=== PATIENT | female | born 2000 | race Caucasian/White ===

== ENCOUNTER 2019-08-03 13:39 | Emergency (ER) | payer OTHER ==
--- NOTE | 2019-08-03 13:47 | ERPHSYRPT ---
- History of Present Illness Time Seen by Provider: 08/03/19 13:47 Source: patient Exam Limitations: no limitations Physician History: 19 y/o sexually active white female presents with one day h/o vaginal pressure and mild suprapubic cramping. no vaginal discharge or bleeding. has a remote h/ o trichomoniasis but received full tx. no known partners with stds. pt denies flank pain, hematuria and dysuria. Timing/Duration: day(s) (1) Activites at Onset: none Quality: cramping (mild suprapubic) Onset Location: suprapubic Pain Radiation: none Severity of Pain-Max: mild Severity of Pain-Current: mild Prior abdominal problems: none Sexual intercourse history: non-contributory Modifying Factors: Improves With: nothing Associated Symptoms: denies symptoms Allergies/Adverse Reactions: No Known Drug Allergies Allergy (Verified 08/03/19 13:48) - Review of Systems Constitutional: No Symptoms Eyes: No Symptoms Ears, Nose, & Throat: No Symptoms Respiratory: No Symptoms Cardiac: No Symptoms Abdominal/Gastrointestinal: No Symptoms Genitourinary Symptoms: No Symptoms Musculoskeletal: No Symptoms Skin: No Symptoms Neurological: No Symptoms Psychological: No Symptoms Endocrine: No Symptoms Hematologic/Lymphatic: No Symptoms Immunological/Allergic: No Symptoms All Other Systems: Reviewed and Negative - Past Medical History Neurological History: No Pertinent History ENT History: No Pertinent History Cardiac History: No Pertinent History Respiratory History: No Pertinent History Endocrine Medical History: No Pertinent History Musculoskeletal History: No Pertinent History GI Medical History: No Pertinent History History: No Pertinent History Psycho-Social History: No Pertinent History Female Reproductive Disorders: No Pertinent History - Past Surgical History Neuro Surgical History: No Pertinent History Cardiac: No Pertinent History Respiratory: No Pertinent History Gastrointestinal: No Pertinent History Genitourinary: No Pertinent History Musculoskeletal: No Pertinent History Female Surgical History: No Pertinent History - Nursing Vital Signs Nursing Vital Signs: Initial Vital Signs Temperature 98.7 F 08/03/19 13:49 Pulse Rate 85 08/03/19 13:49 Blood Pressure 141/79 08/03/19 13:49 O2 Sat by Pulse Oximetry 99 08/03/19 13:49 Pain Scale Pain Intensity [Medial Soft 8 Tissue] Pain Intensity 8 - Physical Exam General Appearance: no apparent distress, alert Eye Exam: PERRL/EOMI, eyes nml inspection Ears, Nose, Throat Exam: normal ENT inspection, moist mucous membranes Neck Exam: normal inspection, non-tender, supple, full range of motion Respiratory Exam: normal breath sounds, lungs clear, airway intact, No chest tenderness, No respiratory distress Cardiovascular Exam: regular rate/rhythm, normal heart sounds, normal peripheral pulses Gastrointestinal/Abdomen Exam: soft, normal bowel sounds, No tenderness Pelvic Exam: not done Rectal Exam: not done Back Exam: normal inspection, normal range of motion, No CVA tenderness, No vertebral tenderness Extremity Exam: normal inspection, normal range of motion, pelvis stable Neurologic Exam: alert, oriented x 3, cooperative, No medical specialist II-XII nml as tested Skin Exam: normal color, warm, dry Lymphatic Exam: No adenopathy SpO2 Interpretation: normal O2 Delivery: Room Air - Course Nursing assessment & vital signs reviewed: Yes Ordered Tests: Active Orders 24 hr Category Date Time Status CULTURE,URINE Stat Lab 08/03/19 14:13 Received HCG,QUALITATIVE URINE Stat Lab 08/03/19 14:13 Completed UA W/RFX UR CULTURE Stat Lab 08/03/19 14:13 Completed Medication Summary Discontinued Medications Generic Name Dose Route Start Last Admin Trade Name Tawanna PRN Reason Stop Dose Admin Trimethoprim/Sulfamethoxazole 1 tab 08/03/19 15:06 08/03/19 15:08 Bactrim Ds Tablet PO 08/03/19 15:07 1 tab STAT STA Administration Trimethoprim/Sulfamethoxazole Confirm 08/03/19 15:07 Bactrim Ds Tablet Administered 08/03/19 15:08 Dose 1 tab PO .Schematic Labs ONE Lab/Rad Data: Laboratory Results 08/03/19 08/03/19 08/03/19 Range/Units 14:13 14:13 14:13 Urine Color YELLOW (YELLOW) Urine Appearance SLIGHTLY CLOUDY (CLEAR) Urine pH 5.0 (5-6) Ur Specific [place] 1.032 (1.005-1.025) Urine Protein NEGATIVE (Negative) Urine Ketones TRACE (NEGATIVE) Urine Blood NEGATIVE (0-5) Mayur/ul Urine Nitrite NEGATIVE (NEGATIVE) Urine Bilirubin NEGATIVE (NEGATIVE) Urine Urobilinogen 2 (0-1) mg/dL Ur Leukocyte Esterase TRACE (NEGATIVE) Urine WBC (Auto) 6-10 (0-5) /HPF Urine RBC (Auto) 3-5 (0-2) /HPF U Epithel Cells (Auto) RARE (FEW) /HPF Urine Bacteria (Auto) RARE (NEGATIVE) /HPF Urine Mucus (Auto) SLIGHT (NEGATIVE) /HPF Urine Culture Reflexed YES (NO) Urine Glucose NEGATIVE (NEGATIVE) mg/dL Urine HCG, Qual NEGATIVE (Negative) Ur Chlamydia DNA Probe NEGATIVE (NEGATIVE) Urine GC DNA Probe NEGATIVE (NEGATIVE) - Progress Progress: re-examined, unchanged Air Movement: good Blood Culture(s) Obtained: No Antibiotics given: Yes Counseled pt/family regarding: lab results, diagnosis, need for follow-up - Departure Departure Disposition: Home Clinical Impression: UTI (urinary tract infection) Condition: Stable Critical Care Time: No Additional Instructions: drink plenty of fluids. follow up with primary doctor for further management. use tylenol and ibuprofen for pain Prescriptions: Phenazopyridine HCl 200 mg [Pyridium 200 mg] 200 mg PO TID #6 tablet Smz/Tmp Ds Tablet [Bactrim Ds Tablet] 1 udtab PO BID #14 tablet
[2019-08-03 14:25] LABS: Appearance SLIGHTLY CLOUDY (CLEAR); Bacteria RARE /HPF (NEGATIVE); Bilirubin NEGATIVE (NEGATIVE); Blood NEGATIVE Ery/ul (0-5); Epithelial Cells RARE /HPF (FEW); Glucose NEGATIVE (NEGATIVE); Ketones TRACE (NEGATIVE); Leukocyte Esterase TRACE (NEGATIVE); Mucus SLIGHT /HPF (NEGATIVE); Nitrite NEGATIVE (NEGATIVE); Protein,Urine Dip NEGATIVE (Negative); Specific Gravity 1.032 (1.005-1.025); Urobilinogen 2 mg/dL (0-1)
[2019-08-03] MEDS ORDERED: BACTRIM DS TABLET PO STA (15:06)
[2019-08-03] MEDS ORDERED: BACTRIM DS TABLET PO ONE (15:07)
[2019-08-03 15:56] LABS: CHLAMYDIA URINE NEGATIVE (NEGATIVE); GC URINE NEGATIVE (NEGATIVE)
[2019-08-03 16:36] VITALS: BP 132/89; PULSE 101; O2SAT 99
== END 2019-08-03 16:36 | disposition home or self-care (01) ==
LOC: ED 13:39
DX: N39.0 Urinary tract infection, site not specified (principal)
CPT/HCPCS: 81001; 84703; 87086; 87491; 87591; 99283; A9270-GY

== ENCOUNTER 2021-07-30 19:01 | Emergency (ER) | payer OTHER ==
[2021-07-30] MEDS ORDERED: TYLENOL 325 MG PO ONE (19:30)
[2021-07-30] MEDS ORDERED: BENADRYL 50 MG/ML IV ONE (19:30)
[2021-07-30] MEDS ORDERED: TORAdol 30 mg Injection IV ONE (19:30)
[2021-07-30] MEDS ORDERED: Reglan 10 MG/2 ML IV ONE (19:30)
[2021-07-30] MEDS ORDERED: BENADRYL 50 MG/ML ONE (19:46)
[2021-07-30] MEDS ORDERED: TYLENOL 325 MG ONE (19:46)
[2021-07-30] MEDS ORDERED: Reglan 10 MG/2 ML ONE (19:47)
[2021-07-30] MEDS ORDERED: TORAdol 30 mg Injection ONE (20:22)
--- NOTE | 2021-07-30 20:44 | ERPHSYRPT ---
- History of Present Illness Time Seen by Provider: 07/30/21 19:08 Source: patient Exam Limitations: no limitations Patient Subjective Stated Complaint: Patient states " my right jaw started hurting couple of days ago and now the pain has went up into my right ear and up into the right side of my head." Triage Nursing Assessment: Patient arrived to ED and ambulated back to room with steady gait and no difficulties. Patient A/O times 4. Patient able to follow instructions without difficulty. Patient with complaints to right side of face, ear, and head pain for last couple of days. Patient stated she had seen Dentist couple of weeks ago and they stated she did need a root canal abnd some cavities filled. Upon oral inspection some cavities noted. No abscesses noted in oral cavity. No swelling or bruising noted to face. Patient denies any trauma or injury to face. No JVD noted. Patient with no HX of migraines. 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 Bilateral pupils brisk and reactive to light. Neuro checks WNL. Patient denies any visual disterbances or lightheadiness. Patient stated pain had started in right jaw but last couple of days it has radiated. Patient denies N/V. Patient afebrile. Physician History: 21 years old presented in the ER with chief complaint of right sided facial pain and headache. Patient reported started as a right upper jaw pain and radiation to the right ear and right temporal area moderate to severe intensity, sharp nature, partial relief with [id number] medications. Denies any associated nausea vomiting or blurry vision. No numbness tingling or weakness. Patient does have dental stent was seen by dentist last week but on the left side. No fever or chills reported. Midnight head injury. Timing/Duration: gradual onset, persistent, days (2) Severity: moderate ENT Location: ear (R), mouth, facial, dental Prearrival Treatment: over the counter meds Associated Symptoms: ear pain (R), facial pain/swelling, headache Allergies/Adverse Reactions: No Known Drug Allergies Allergy (Verified 07/30/21 19:18) Home Medications: Ferrous Sulfate 325 mg PO DAILY 07/30/21 [History] Hx Tetanus, Diphtheria Vaccination/Date Given: Yes Hx Influenza Vaccination/Date Given: Yes Hx Pneumococcal Vaccination/Date Given: No Immunizations Up to Date: Yes Travel Risk - International Travel Have you traveled outside of the country in past 3 weeks: No - Coronavirus Screening Are you exhibiting any of the following symptoms?: No Close contact with a COVID-19 positive Pt in past 14-21 Days: No - Vaccine Status Have you recieved a Covid-19 vaccination: No - Review of Systems Constitutional: No Symptoms Eyes: No Symptoms Ears, Nose, & Throat: Painful Swallowing Respiratory: No Symptoms Cardiac: No Symptoms Abdominal/Gastrointestinal: No Symptoms Genitourinary Symptoms: No Symptoms Musculoskeletal: No Symptoms Skin: No Symptoms Neurological: Headache Psychological: No Symptoms Endocrine: No Symptoms Hematologic/Lymphatic: No Symptoms - Past Medical History Pertinent Past Medical History: Yes Neurological History: No Pertinent History ENT History: No Pertinent History Cardiac History: No Pertinent History Respiratory History: No Pertinent History Endocrine Medical History: No Pertinent History Musculoskeletal History: No Pertinent History GI Medical History: No Pertinent History History: No Pertinent History Psycho-Social History: No Pertinent History Female Reproductive Disorders: No Pertinent History Other Medical History: DX Anemia - Past Surgical History Past Surgical History: No Neuro Surgical History: No Pertinent History Cardiac: No Pertinent History Respiratory: No Pertinent History Gastrointestinal: No Pertinent History Genitourinary: No Pertinent History Musculoskeletal: No Pertinent History Female Surgical History: No Pertinent History - Social History Smoking Status: Former smoker Exposure to second hand smoke: No Drug Use: none Patient Lives Alone: No - Female History Hx Last Menstrual Period: 07/26/21 Hx Now: No - Nursing Vital Signs Nursing Vital Signs: Initial Vital Signs Temperature 97.9 F 07/30/21 19:02 Pulse Rate 66 07/30/21 19:02 Respiratory Rate 20 07/30/21 19:02 Blood Pressure 159/101 07/30/21 19:02 O2 Sat by Pulse Oximetry 100 07/30/21 19:02 Pain Scale Pain Intensity 2 - Physical Exam General Appearance: no apparent distress, alert, anxiety Eye Exam: bilateral eye: normal inspection, PERRL, EOMI Ear Exam: bilateral ear: auricle normal, canal normal, TM normal Nasal Exam: normal inspection Throat Exam: normal, pharynx normal, moist mucus membranes, No dental tenderness, No excessive drooling, No mandibular swelling, No maxillary swelling Neck Exam: normal inspection, non-tender, supple, full range of motion, trachea midline Cardiovascular/Respiratory Exam: normal breath sounds, regular rate/rhythm Abdominal Exam: spleenomegaly Neurologic Exam: alert, oriented x 3, cooperative, nml cerebellar function, nml station & gait, sensation nml, No normal mood/affect (Anxious), No motor deficits Skin Exam: normal color SpO2 Interpretation: normal SpO2: 99 O2 Delivery: Room Air Ordered Tests: Active Orders 24 hr Category Date Time Status IV Insertion STAT Care 07/30/21 19:30 Active HCG,QUALITATIVE URINE Stat Lab 07/30/21 19:36 Completed Medication Summary Discontinued Medications Generic Name Dose Route Start Last Admin Trade Name Tawanna PRN Reason Stop Dose Admin Acetaminophen 975 mg 07/30/21 19:30 07/30/21 19:50 Tylenol 325 Mg PO 07/30/21 19:31 975 mg STAT ONE Administration Acetaminophen Confirm 07/30/21 19:46 Tylenol 325 Mg Administered 07/30/21 19:47 Dose 975 mg .ROUTE .STK-MED ONE Diphenhydramine HCl 25 mg 07/30/21 19:30 07/30/21 19:50 Benadryl 50 Mg/Ml IV 07/30/21 19:31 25 mg STAT ONE Administration Diphenhydramine HCl Confirm 07/30/21 19:46 Benadryl 50 Mg/Ml Administered 07/30/21 19:47 Dose 50 mg .ROUTE .STK-MED ONE Ketorolac Tromethamine 30 mg 07/30/21 19:30 07/30/21 20:31 Toradol 30 Mg Injection IV 07/30/21 19:31 30 mg STAT ONE Administration Ketorolac Tromethamine Confirm 07/30/21 20:22 Toradol 30 Mg Injection Administered 07/30/21 20:23 Dose 30 mg .ROUTE .STK-MED ONE Metoclopramide HCl 10 mg 07/30/21 19:30 07/30/21 19:50 Reglan 10 Mg/2 Ml IV 07/30/21 19:31 10 mg STAT ONE Administration Metoclopramide HCl Confirm 07/30/21 19:47 Reglan 10 Mg/2 Ml Administered 07/30/21 19:48 Dose 10 mg .ROUTE .STK-MED ONE Lab/Rad Data: Laboratory Results 07/30/21 Range/Units 19:36 Urine HCG, Qual NEGATIVE (Negative) - Progress Progress: improved, re-examined Progress Note: 07/30/21 She has nonfocal neuro exam throughout her stay in the ER. Given migraine cocktail, feeling better on reevaluation. I believe patient initial pain started as it was probably dental in origin causing headache. Recommended Tylenol ibuprofen as needed and outpatient follow-up. Counseled pt/family regarding: diagnosis, need for follow-up - Departure Departure Disposition: Home Clinical Impression: Right-sided headache Condition: Stable Critical Care Time: No Referrals: DOCTOR,NO FAMILY [Primary Care Provider] - ERIK FERGUSON, [ACTIVE STAFF] - (Call tomorrow for appointment and reevaluation) Instructions: Headache, Adult (DC) Additional Instructions: Take Tylenol/ibuprofen as needed. Follow-up with your primary care physician for reevaluation. Return to ER for intractable headache, numbness tingling, focal weakness, visual disturbance etc.
[2021-07-30 22:02] VITALS: BP 105/77; PULSE 79; O2SAT 98
== END 2021-07-30 22:00 | disposition home or self-care (01) ==
LOC: ED 19:01
DX: R51.9 Headache, unspecified (principal)
CPT/HCPCS: 36000; 84703; 96374; 96375; 99284; J1200; J1885; A9270-GY

== ENCOUNTER 2022-06-10 10:28 | Emergency (ER) | payer BC, OTHER ==
[2022-06-10 11:14] VITALS: PULSE 81; O2SAT 98
[2022-06-10 11:21] LABS: Basophil (Absolute #) 0.05 x10^3/uL (0-0.4); Eosinophil % 4.4 % (0.00-5.0); Eosinophil (Absolute #) 0.25 x10^3/uL (0-0.5); Hematocrit 35.8 % (35-47); Hemoglobin 11.2 g/dL (12.0-16.0); Lymphocyte (Absolute #) 1.74 x10^3/uL (1.0-4.6); Lymphocytes % 30.8 % (24.0-44.0); Mean Cell Volume 80.1 fL (78-100); Mean Corpuscular Hemoglobin 25.1 pg (26-32); Mean Corpuscular Hgb Concent. 31.3 g/dL (32-36); Mean Platelet Volume 9.8 fL (7.5-11.0); Monocytes % 8.8 % (0.0-12.0); Neutrophil % 54.9 % (36.0-66.0); Platelet Count 380 x10^3/uL (150-450); Red Blood Count 4.47 x10^6/uL (4.1-5.4); Red Cell Distribution Width 13.7 % (11.5-14.0); White Blood Count 5.7 x10^3/uL (4.0-10.5)
[2022-06-10 11:25] LABS: Appearance CLEAR (CLEAR); Bilirubin NEGATIVE (NEGATIVE); Dipstick done @ ? MAIN LAB; Glucose NEGATIVE (NEGATIVE); Ketones NEGATIVE (NEGATIVE); Nitrite NEGATIVE (NEGATIVE); Protein,Urine Dip NEGATIVE (Negative); RBC NEGATIVE Ery/ul (0-5); Urobilinogen 0.2 mg/dL (0-1)
--- NOTE | 2022-06-10 11:29 | ERPHSYRPT ---
- History of Present Illness Historian: patient Exam Limitations: no limitations Patient Subjective Stated Complaint: Complaints of upper abdominal pain and lower abdominal "ovary" pain. No nausea, vomiting or diarrhea. Triage Nursing Assessment: Abd soft, tender, BS x4. No n/v/d. Pain is 7/10 to upper and lower abdomen. No other c/o. Physician History: 22 yo wf w epigastric pain x 5days, along w LLQ pain. Pt has a h/o LLQ pain which she believes is due to her ovary but ropeman w/u has been neg. Pain is 7/10, sharp. and worse w upright position. N/V/D/melena/hematochezia/dysuria/hematuria/ all denied. Timing/Duration: other (5 days) Quality: sharpness Abdominal Pain Onset Location: LLQ, epigastric Pain Radiation: no radiation Severity of Pain-Max: severe Severity of Pain-Current: moderate Modifying Factors: Improves With: movement, walking. Worsens With: analgesics, antacids, breathing, coughing, defecating, eating, exercise, lying down, palpation, rest, urinating, vomiting, position Associated Symptoms: No back, No chest pain, No diaphoresis, No diarrhea, No fever/chills, No fatigue, No headache, No heartburn, No loss of appetite, No nausea, No neck pain, No rash, No shortness of breath, No syncope, No vomiting Previous symptoms: same symptoms as today Allergies/Adverse Reactions: No Known Drug Allergies Allergy (Verified 07/30/21 19:18) Home Medications: Ferrous Sulfate 325 mg PO DAILY 07/30/21 [History] Hx Tetanus, Diphtheria Vaccination/Date Given: Yes Hx Influenza Vaccination/Date Given: No Hx Pneumococcal Vaccination/Date Given: No Immunizations Up to Date: Yes Travel Risk - International Travel Have you traveled outside of the country in past 3 weeks: No - Coronavirus Screening Are you exhibiting any of the following symptoms?: No Close contact with a COVID-19 positive Pt in past 14-21 Days: No - Vaccine Status Have you recieved a Covid-19 vaccination: No - Review of Systems Constitutional: No Symptoms Eyes: No Symptoms Ears, Nose, & Throat: No Symptoms Respiratory: No Symptoms Cardiac: No Symptoms Abdominal/Gastrointestinal: No Symptoms, Abdominal Pain Genitourinary Symptoms: No Symptoms Musculoskeletal: No Symptoms Skin: No Symptoms Neurological: No Symptoms Psychological: No Symptoms Endocrine: No Symptoms Hematologic/Lymphatic: No Symptoms Immunological/Allergic: No Symptoms - Past Medical History Pertinent Past Medical History: Yes Neurological History: No Pertinent History ENT History: No Pertinent History Cardiac History: No Pertinent History Respiratory History: No Pertinent History Endocrine Medical History: No Pertinent History Musculoskeletal History: No Pertinent History GI Medical History: No Pertinent History History: No Pertinent History Psycho-Social History: Depression Female Reproductive Disorders: Menstrual Problems Other Medical History: DX Anemia - Past Surgical History Past Surgical History: No Neuro Surgical History: No Pertinent History Cardiac: No Pertinent History Respiratory: No Pertinent History Gastrointestinal: No Pertinent History Genitourinary: No Pertinent History Musculoskeletal: No Pertinent History Female Surgical History: No Pertinent History - Social History Smoking Status: Former smoker Exposure to second hand smoke: No Drug Use: none Patient Lives Alone: No Significant Family History: no pertinent family hx - Female History Hx Last Menstrual Period: 05/28/22 Hx Now: No - Nursing Vital Signs Nursing Vital Signs: Initial Vital Signs Pulse Rate 81 06/10/22 10:28 Respiratory Rate 18 06/10/22 10:28 Blood Pressure 129/79 06/10/22 10:28 O2 Sat by Pulse Oximetry 98 06/10/22 10:28 Pain Scale Pain Intensity 7 WNL - Physical Exam General Appearance: no apparent distress Eye Exam: PERRL/EOMI, eyes nml inspection Ears, Nose, Throat Exam: normal ENT inspection, TMs normal, pharynx normal, moist mucous membranes Neck Exam: normal inspection, non-tender, supple, full range of motion, No meningismus, No mass, No Brudzinski Respiratory Exam: normal breath sounds, lungs clear, airway intact Cardiovascular Exam: regular rate/rhythm, normal heart sounds, normal peripheral pulses, capillary refill <2 sec, No murmur Gastrointestinal/Abdomen Exam: soft, normal bowel sounds, tenderness (MIld epigastric TTP wo guarding or rebound/Mild LLQ TTP wo guarding or rebound) Back Exam: normal inspection, normal range of motion, No CVA tenderness, No vertebral tenderness Extremity Exam: normal inspection, normal range of motion Neurologic Exam: alert, oriented x 3, cooperative, 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 as tested, normal mood/affect, nml cerebellar function, nml station & gait, sensation nml Skin Exam: normal color, warm, dry Lymphatic Exam: No adenopathy SpO2 Interpretation: normal SpO2: 98 O2 Delivery: Room Air - Course Nursing assessment & vital signs reviewed: Yes - CT Exams Abdomen/Pelvis CT Interpretation: Tele-radiologist Report (Nothing acute) Ordered Tests: Active Orders 24 hr Category Date Time Status ABDOMEN AND PELVIS W/0 CONTRAS [CT] Stat Exams 06/10/22 12:08 Taken AMYLASE Stat Lab 06/10/22 11:20 Completed CBC W DIFF Stat Lab 06/10/22 11:20 Completed CMP Stat Lab 06/10/22 11:20 Completed HCG,QUALITATIVE URINE Stat Lab 06/10/22 11:20 Completed LIPASE Stat Lab 06/10/22 11:20 Completed UA W/RFX CULTURE Stat Lab 06/10/22 11:20 Completed Medication Summary Discontinued Medications Generic Name Dose Route Start Last Admin Trade Name Freq PRN Reason Stop Dose Admin Ketorolac Tromethamine 30 mg 06/10/22 11:56 06/10/22 12:08 Ketorolac Tromethamine 30 Mg/Ml Inj IM 06/10/22 11:57 30 mg STAT ONE Administration Ketorolac Tromethamine Confirm 06/10/22 12:07 Ketorolac Tromethamine 30 Mg/Ml Inj Administered 06/10/22 12:08 Dose 30 mg .ROUTE .STK-MED ONE Lab/Rad Data: Laboratory Result Diagrams 06/10/22 11:20 06/10/22 11:20 Laboratory Results 06/10/22 06/10/22 06/10/22 Range/Units 11:20 11:20 11:20 WBC 5.7 (4.0-10.5) x10^3/uL RBC 4.47 (4.1-5.4) x10^6/uL Hgb 11.2 L (12.0-16.0) g/dL Hct 35.8 (35-47) % MCV 80.1 (78-100) fL MCH 25.1 L (26-32) pg MCHC 31.3 L (32-36) g/dL RDW 13.7 (11.5-14.0) % Plt Count 380 (150-450) x10^3/uL MPV 9.8 (7.5-11.0) fL Gran % 54.9 (36.0-66.0) % Immature Gran % (Auto) 0.2 (0.00-0.4) % Nucleat RBC Rel Count 0.0 (0.00-0.1) % Eos # (Auto) 0.25 (0-0.5) x10^3/uL Immature Gran # (Auto) 0.01 (0.00-0.03) x10^3u/L Absolute Lymphs (auto) 1.74 (1.0-4.6) x10^3/uL Absolute Monos (auto) 0.50 (0.0-1.3) x10^3/uL Absolute Nucleated RBC 0.00 (0.00-0.01) x10^3u/L Lymphocytes % 30.8 (24.0-44.0) % Monocytes % 8.8 (0.0-12.0) % Eosinophils % 4.4 (0.00-5.0) % Basophils % 0.9 (0.0-0.4) % Absolute Granulocytes 3.10 (1.4-6.9) x10^3/uL Basophils # 0.05 (0-0.4) x10^3/uL Sodium 137 (137-145) mmol/L Potassium 3.9 (3.5-5.1) mmol/L Chloride 102 (98-107) mmol/L Carbon Dioxide 25 (22-30) mmol/L Anion Gap 14.9 (5-15) MEQ/L BUN 9 (7-17) mg/dL Creatinine 0.58 (0.52-1.04) mg/dL Estimated GFR > 60.0 ML/MIN Glucose 87 (74-106) mg/dL Calcium 9.1 (8.4-10.2) mg/dL Total Bilirubin 0.70 (0.2-1.3) mg/dL AST 20 (14-36) U/L ALT 13 (0-35) U/L Alkaline Phosphatase 88 (38-126) U/L Serum Total Protein 8.3 H (6.3-8.2) g/dL Albumin 4.5 (3.5-5.0) g/dL Amylase 72 (30-110) U/L Lipase 38 (23-300) U/L Urinalys Dipstick Clnc MAIN LAB Urine Color YELLOW (YELLOW) Urine Appearance CLEAR (CLEAR) Urine pH 6.0 (5-6) Ur Specific [place] 1.010 (1.005-1.025) POC Urine Protein Conf NEGATIVE (Negative) Urine Ketones NEGATIVE (NEGATIVE) Urine Nitrite NEGATIVE (NEGATIVE) Urine Bilirubin NEGATIVE (NEGATIVE) Urine Urobilinogen 0.2 (0-1) mg/dL Urine Leukocytes TRACE (NEGATIVE) Urine WBC (Auto) 0-2 (0-5) /HPF Urine RBC (Auto) NONE (0-2) /HPF U Epithel Cells (Auto) RARE (FEW) /HPF Urine Bacteria (Auto) NONE (NEGATIVE) /HPF Urine RBC NEGATIVE (0-5) Mayur/ul Ur Culture Indicated? NO Urine Glucose NEGATIVE (NEGATIVE) mg/dL Urine HCG, Qual (Negative) 06/10/22 Range/Units 11:20 WBC (4.0-10.5) x10^3/uL RBC (4.1-5.4) x10^6/uL Hgb (12.0-16.0) g/dL Hct (35-47) % MCV (78-100) fL MCH (26-32) pg MCHC (32-36) g/dL RDW (11.5-14.0) % Plt Count (150-450) x10^3/uL MPV (7.5-11.0) fL Gran % (36.0-66.0) % Immature Gran % (Auto) (0.00-0.4) % Nucleat RBC Rel Count (0.00-0.1) % Eos # (Auto) (0-0.5) x10^3/uL Immature Gran # (Auto) (0.00-0.03) x10^3u/L Absolute Lymphs (auto) (1.0-4.6) x10^3/uL Absolute Monos (auto) (0.0-1.3) x10^3/uL Absolute Nucleated RBC (0.00-0.01) x10^3u/L Lymphocytes % (24.0-44.0) % Monocytes % (0.0-12.0) % Eosinophils % (0.00-5.0) % Basophils % (0.0-0.4) % Absolute Granulocytes (1.4-6.9) x10^3/uL Basophils # (0-0.4) x10^3/uL Sodium (137-145) mmol/L Potassium (3.5-5.1) mmol/L Chloride (98-107) mmol/L Carbon Dioxide (22-30) mmol/L Anion Gap (5-15) MEQ/L BUN (7-17) mg/dL Creatinine (0.52-1.04) mg/dL Estimated GFR ML/MIN Glucose (74-106) mg/dL Calcium (8.4-10.2) mg/dL Total Bilirubin (0.2-1.3) mg/dL AST (14-36) U/L ALT (0-35) U/L Alkaline Phosphatase (38-126) U/L Serum Total Protein (6.3-8.2) g/dL Albumin (3.5-5.0) g/dL Amylase (30-110) U/L Lipase (23-300) U/L Urinalys Dipstick Clnc Urine Color (YELLOW) Urine Appearance (CLEAR) Urine pH (5-6) Ur Specific [place] (1.005-1.025) POC Urine Protein Conf (Negative) Urine Ketones (NEGATIVE) Urine Nitrite (NEGATIVE) Urine Bilirubin (NEGATIVE) Urine Urobilinogen (0-1) mg/dL Urine Leukocytes (NEGATIVE) Urine WBC (Auto) (0-5) /HPF Urine RBC (Auto) (0-2) /HPF U Epithel Cells (Auto) (FEW) /HPF Urine Bacteria (Auto) (NEGATIVE) /HPF Urine RBC (0-5) Mayur/ul Ur Culture Indicated? Urine Glucose (NEGATIVE) mg/dL Urine HCG, Qual NEGATIVE (Negative) - Progress Progress: improved Progress Note: 06/10/22 12:33 30mg IM Toradol Counseled pt/family regarding: lab results, diagnosis, need for follow-up, rad results - Departure Departure Disposition: Home Clinical Impression: Abdominal pain Condition: Stable Critical Care Time: No Referrals: DOCTOR,NO FAMILY [Primary Care Provider] - Follow up/PCP as directed Instructions: Severe Abdominal Pain, Adult (DC) Additional Instructions: Follow up with your family MD or Ob-ropeman Bentyl as needed for pain Return to ER for increasing pain or temperature greater than 100.5 Prescriptions: Dicyclomine HCl 20 mg [Bentyl 20 mg] 20 mg PO QID PRN PRN #15 tablet PRN Reason: Pain
[2022-06-10 11:39] LABS: Epithelial Cells RARE /HPF (FEW); WBC 0-2 /HPF (0-5)
[2022-06-10 11:43] LABS: Urine Cultured Indicated? NO
[2022-06-10 11:44] LABS: ALBUMIN 4.5 g/dL (3.5-5.0); ALKALINE PHOSPHATASE 88 U/L (38-126); AMYLASE 72 U/L (30-110); ANION GAP 14.9 MEQ/L (5-15); BLOOD UREA NITROGEN 9 mg/dL (7-17); CHLORIDE 102 mmol/L (98-107); Calcium 9.1 mg/dL (8.4-10.2); Carbon Dioxide 25 mmol/L (22-30); Creatinine 1 0.58 mg/dL (0.52-1.04); EST GLOMERULAR FILTRATION RATE > 60.0 ML/MIN; Glucose 87 mg/dL (74-106); LIPASE 38 U/L (23-300); Potassium 3.9 mmol/L (3.5-5.1); SGOT/AST 20 U/L (14-36); SGPT/ALT 13 U/L (0-35); SODIUM 137 mmol/L (137-145); Total Protein 8.3 g/dL (6.3-8.2)
[2022-06-10] MEDS ORDERED: TORAdol 30 mg Injection IM ONE (11:56)
[2022-06-10] MEDS ORDERED: TORAdol 30 mg Injection ONE (12:07)
[2022-06-10 12:44] VITALS: BP 128/78
--- NOTE | 2022-06-10 19:52 | XRAY ---
Indication: Abdomen and pelvic pain 5 days. Multiple contiguous axial images obtained through the abdomen and pelvis without contrast. Comparison: None Lung bases demonstrates minimal dependent atelectasis. Heart not enlarged. Noncontrasted stomach and bowel loops appear nonobstructed with normal appendix. No free fluid/air. Remaining liver, gallbladder, pancreas, spleen, adrenal glands, kidneys, ureters, bladder, uterus, and aorta are unremarkable for noncontrast exam. Osseous structures intact. No ventral or inguinal hernias. Impression: Negative CT abdomen/pelvis without contrast exam. Comment: Preliminary interpretation made by [facility]. No critical discrepancy.
== END 2022-06-10 12:50 | disposition home or self-care (01) ==
LOC: ED 10:28
DX: R10.13 Epigastric pain (principal); R10.32 Left lower quadrant pain; Z28.310 Unvaccinated for COVID-19
CPT/HCPCS: 36000; 36415; 74176; 80053; 81015; 81025; 82150; 83690; 85025; 96372; 99283; J1885

== ENCOUNTER 2022-12-12 16:30 | Emergency (ER) | payer BC, OTHER ==
[2022-12-12 17:57] LABS: Appearance Clear (Clear); Bacteria None Seen /HPF (None Seen); Bilirubin Negative (Negative); Blood Negative (Negative); Epithelial Cells Rare /HPF (None Seen); Glucose, Urine Negative (Negative); Hyaline Casts NONE SEEN /LPF (0-2); Ketones Trace (Negative); Leukocyte Esterase Negative (Negative); Nitrite Negative (Negative); Protein,Urine Dip Negative (Negative); RBC 0-2 /HPF (0-5); Specific Gravity >=1.030 (1.005-1.030); WBC 0-2 /HPF (0-5)
[2022-12-12 18:00] LABS: ADD URINE CULTURE? NO (NO)
[2022-12-12 18:04] LABS: Bacteria Moderate; Clue Cells Rare; Red Blood Cells None Seen; Trichomonas None Seen; White Blood Cells Few
[2022-12-12 18:05] LABS: Yeast None Seen
--- NOTE | 2022-12-12 18:08 | ERPHSYRPT ---
- History of Present Illness Time Seen by Provider: 12/12/22 16:50 Source: patient Exam Limitations: no limitations Patient Subjective Stated Complaint: Pt reports "I feel like my vagina is falling out. I have been having lower pain over my ovaries for about 4 or 5 months and this morning the pain was really bad and I felt like something was falling out. I called Dr De León and he told me to take a warm bath and try to push it back up which I did but I can't get it back up. I have an appointment with Dr De León on 12/18/22." Triage Nursing Assessment: Pt alert and oriented x3. No apparent respiratory distress. Skin w/p/d. Pt ambulated to ED cot without difficulty. Physician History: Patient here with what she describes as vaginal protruding. Patient states she has been having ovary pain off and on for 4 to 5 months. Over the last week she feels that her "vagina is falling out". She has no history of uterine, vaginal prolapse. She has had vaginal deliveries in the past. She does not believe that she is . She is not sexually active. No falls or other trauma. No abdominal pain, fever, chills. No history of STD, STIs. No recent exposure. Allergies/Adverse Reactions: No Known Drug Allergies Allergy (Verified 12/12/22 16:53) Home Medications: Norgestimate-Ethinyl Estradiol [Tri-Lo-Jennifer Tablet] 1 tab PO DAILY 12/12/22 [History] Hx Tetanus, Diphtheria Vaccination/Date Given: No Hx Influenza Vaccination/Date Given: No Hx Pneumococcal Vaccination/Date Given: No Travel Risk - International Travel Have you traveled outside of the country in past 3 weeks: No - Coronavirus Screening Are you exhibiting any of the following symptoms?: No Close contact with a COVID-19 positive Pt in past 14-21 Days: No - Vaccine Status Have you recieved a Covid-19 vaccination: No - Review of Systems Constitutional: No Fever, No Chills Eyes: No Symptoms Ears, Nose, & Throat: No Symptoms Respiratory: No Cough, No Dyspnea Cardiac: No Chest Pain, No Edema, No Syncope Abdominal/Gastrointestinal: No Abdominal Pain, No Nausea, No Vomiting, No Diarrhea Genitourinary Symptoms: No Dysuria Musculoskeletal: No Back Pain, No Neck Pain Skin: No Rash Neurological: No Dizziness, No Focal Weakness, No Sensory Changes Psychological: No Symptoms Endocrine: No Symptoms All Other Systems: Reviewed and Negative - Past Medical History Pertinent Past Medical History: Yes Neurological History: No Pertinent History ENT History: No Pertinent History Cardiac History: No Pertinent History Respiratory History: No Pertinent History Endocrine Medical History: No Pertinent History Musculoskeletal History: No Pertinent History GI Medical History: No Pertinent History History: No Pertinent History Psycho-Social History: Depression Female Reproductive Disorders: Menstrual Problems Other Medical History: DX Anemia - Past Surgical History Past Surgical History: No Neuro Surgical History: No Pertinent History Cardiac: No Pertinent History Respiratory: No Pertinent History Gastrointestinal: No Pertinent History Genitourinary: No Pertinent History Musculoskeletal: No Pertinent History Female Surgical History: No Pertinent History - Social History Smoking Status: Former smoker Exposure to second hand smoke: No Drug Use: none Patient Lives Alone: No Significant Family History: no pertinent family hx - Female History Hx Last Menstrual Period: 11/26/22 Hx Now: No - Nursing Vital Signs Nursing Vital Signs: Initial Vital Signs Temperature 97.9 F 12/12/22 16:53 Pulse Rate 61 12/12/22 16:53 Respiratory Rate 17 12/12/22 16:53 Blood Pressure 124/86 12/12/22 16:53 O2 Sat by Pulse Oximetry 94 L 12/12/22 16:53 Pain Scale Pain Intensity 6 - Physical Exam General Appearance: no apparent distress, alert Eye Exam: PERRL/EOMI, eyes nml inspection Ears, Nose, Throat Exam: normal ENT inspection, TMs normal, pharynx normal, moist mucous membranes Neck Exam: normal inspection, non-tender, supple, full range of motion Respiratory Exam: normal breath sounds, lungs clear, No respiratory distress Cardiovascular Exam: regular rate/rhythm, normal heart sounds, normal peripheral pulses Gastrointestinal/Abdomen Exam: soft, normal bowel sounds, No tenderness, No mass Pelvic Exam: other (Blind Lacer pelvic exam.) Back Exam: normal inspection, normal range of motion, No CVA tenderness, No vertebral tenderness Extremity Exam: normal inspection, normal range of motion, pelvis stable Neurologic Exam: alert, oriented x 3, cooperative, normal mood/affect, nml cerebellar function, nml station & gait, sensation nml, No motor deficits Skin Exam: normal color, warm, dry, No rash Lymphatic Exam: No adenopathy SpO2: 94 Comments: 12/12/22 18:23 Check prone pelvic exam demonstrated discharge. No tenderness on insertion of speculum. No uterine, vaginal prolapse on exam. No foreign bodies. No bleeding. Cervix is closed. Vaginal vault is normal outside of discharge. - Course Nursing assessment & vital signs reviewed: Yes Ordered Tests: Active Orders 24 hr Category Date Time Status HCG,QUALITATIVE URINE Stat Lab 12/12/22 17:39 Completed UA W/RFX UR CULTURE Stat Lab 12/12/22 17:39 Completed Wet Prep Stat Lab 12/12/22 17:30 Completed Lab/Rad Data: Laboratory Results 12/12/22 12/12/22 12/12/22 Range/Units 17:39 17:39 17:30 Urine Color Yellow (Yellow) Urine Appearance Clear (Clear) Urine pH 6.0 (4.6-8.0) Ur Specific [place] >=1.030 A (1.005-1.030) Urine Protein Negative (Negative) Urine Glucose (UA) Negative (Negative) mg/dL Urine Ketones Trace A (Negative) Urine Blood Negative (Negative) Urine Nitrite Negative (Negative) Urine Bilirubin Negative (Negative) Urine Urobilinogen 1.0 A (0.2) mg/dL Ur Leukocyte Esterase Negative (Negative) U Hyaline Cast (Auto) NONE SEEN (0-2) /LPF Urine Microscopic RBC 0-2 (0-5) /HPF Urine Microscopic WBC 0-2 (0-5) /HPF Ur Epithelial Cells Rare (None Seen) /HPF Urine Bacteria None Seen (None Seen) /HPF Urine Culture Reflexed NO (NO) Urine HCG, Qual NEGATIVE (Negative) WBC (Wet Prep) Few RBC (Wet Prep) None Seen Epi Cells (Wet Prep) Few Bacteria (Wet Prep) Moderate Clue Cells (Wet Prep) Rare Trichomonas (Wet Prep) None Seen Budding Yeast (Wet Prp) None Seen - Progress Progress: improved Progress Note: 12/12/22 18:24 Normal physical exam. Negative test, UA shows no sign of infection. Wet mount shows no clue cells, trichomonas, signs of infection. No acute problems found today. Plan for discharge home at this point time. Patient return here sooner for any new or changing symptoms. 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 See Chlamydia test sent. Will not empirically treat given that she is not as active. 12/12/22 18:29 Counseled pt/family regarding: lab results, diagnosis, need for follow-up, rad results - Departure Departure Disposition: Home Clinical Impression: Vaginal discomfort Condition: Stable Critical Care Time: No Referrals: JUSTIN PONCE NP [Primary Care Provider] - Follow up/PCP as directed Instructions: General (DC)
[2022-12-12 18:27] VITALS: BP 136/90; PULSE 90
[2022-12-12 18:32] VITALS: O2SAT 94
[2022-12-12 19:21] LABS: CHLAMYDIA DNA NOT DETECTED (NEGATIVE); GC DNA Probe NOT DETECTED (NEGATIVE)
== END 2022-12-12 18:27 | disposition home or self-care (01) ==
LOC: ED 16:30
DX: R10.2 Pelvic and perineal pain (principal); Z28.310 Unvaccinated for COVID-19
CPT/HCPCS: 81001; 81025; 87210; 87491; 87591; 99282

== ENCOUNTER 2023-07-11 20:41 | Emergency (ER) | payer BC, OTHER ==
[2023-07-11 21:06] VITALS: RESP 16; TEMP 97.1
[2023-07-11] MEDS ORDERED: TORAdol 30 mg Injection IM ONE (21:37)
[2023-07-11] MEDS ORDERED: TORAdol 30 mg Injection ONE (21:42)
--- NOTE | 2023-07-11 21:48 | ERPHSYRPT ---
- History of Present Illness Source: patient Exam Limitations: no limitations Patient Subjective Stated Complaint: pt states she jumped down from a ride at the [facility] and her foot landed sideways and now has pain in the rt outer foot Triage Nursing Assessment: pt alert and oriented, answers questions approp. pt back to room per wheelchair and transfers to stretcher per self, nwb on rt foot. skin warm and dry. bruising and swelling noted to outer aspect of rt foot. pedal pulse and cap refill wnl. Physician History: 23 yo Wf w R ankle/foot pain after falling getting off the [employer] at a local [place]. Pain is moderate and worse w weight bearing. Other injuries are denied. Method of Injury: fell, twisted Occurred: just prior to arrival Quality: constant Severity of Pain-Max: severe Severity of Pain-Current: moderate Lower Extremities Pain: foot: right, ankle: right Modifying Factors: Improves With: movement Associated Symptoms: unable to bear weight Allergies/Adverse Reactions: No Known Drug Allergies Allergy (Verified 07/11/23 21:16) Hx Tetanus, Diphtheria Vaccination/Date Given: No Hx Influenza Vaccination/Date Given: No Hx Pneumococcal Vaccination/Date Given: No Travel Risk - International Travel Have you traveled outside of the country in past 3 weeks: No - Coronavirus Screening Are you exhibiting any of the following symptoms?: No Close contact with a COVID-19 positive Pt in past 14-21 Days: No - Vaccine Status Have you recieved a Covid-19 vaccination: No - Review of Systems Constitutional: No Symptoms Eyes: No Symptoms Ears, Nose, & Throat: No Symptoms Respiratory: No Symptoms Cardiac: No Symptoms Abdominal/Gastrointestinal: No Symptoms Genitourinary Symptoms: No Symptoms Skin: No Symptoms Neurological: No Symptoms Psychological: No Symptoms Endocrine: No Symptoms Hematologic/Lymphatic: No Symptoms Immunological/Allergic: No Symptoms - Past Medical History Pertinent Past Medical History: Yes Neurological History: No Pertinent History ENT History: No Pertinent History Cardiac History: No Pertinent History Respiratory History: No Pertinent History Endocrine Medical History: No Pertinent History Musculoskeletal History: No Pertinent History GI Medical History: No Pertinent History History: No Pertinent History Psycho-Social History: Depression Female Reproductive Disorders: Menstrual Problems Other Medical History: DX Anemia - Past Surgical History Past Surgical History: No Neuro Surgical History: No Pertinent History Cardiac: No Pertinent History Respiratory: No Pertinent History Gastrointestinal: No Pertinent History Genitourinary: No Pertinent History Musculoskeletal: No Pertinent History Female Surgical History: No Pertinent History - Social History Smoking Status: Former smoker How long have you smoked: 3yrs Exposure to second hand smoke: No Drug Use: none Patient Lives Alone: No Significant Family History: no pertinent family hx - Female History Hx Last Menstrual Period: 07/03 Hx Now: No - Nursing Vital Signs Nursing Vital Signs: Initial Vital Signs Temperature 97.1 F 07/11/23 20:53 Pulse Rate 92 H 07/11/23 20:53 Respiratory Rate 16 07/11/23 20:53 Blood Pressure 133/78 07/11/23 20:53 O2 Sat by Pulse Oximetry 99 07/11/23 20:53 Pain Scale Pain Intensity 5 WNL - Physical Exam General Appearance: no apparent distress Eyes, Ears, Nose, Throat Exam: normal ENT inspection, TMs normal, pharynx normal, moist mucous membranes Neck Exam: normal inspection, non-tender, supple, full range of motion, No Brudzinski, No Kernig's, No meningismus Cardiovascular/Respiratory Exam: normal breath sounds, regular rate/rhythm, heart sounds normal Gastrointestinal/Abdominal Exam: non-tender, soft Back Exam: normal inspection, No vertebral tenderness (No T or L-spine TTP) Hips Exam: bilateral: non-tender, normal inspection, normal range of motion, no evidence of injury Legs Exam: bilateral leg: non-tender, normal inspection, normal range of motion, no evidence of injury Knees Exam: bilateral knee: non-tender, normal inspection, normal range of motion, no evidence of injury Ankle Exam: right ankle: other (Mild edema/TTP lateral malleolus/Good pedal pulse, distal sensation, and capillary return) Foot Exam: right foot: other (TTP laterally over 5th metatarsal/Mild edema/good pedal pulse, distal sensation, and capillary return) Neuro/Tendon Exam: normal sensation, normal motor functions, normal tendon functions, responds to pain Mental Status Exam: alert, oriented x 3, cooperative Skin Exam: normal color, warm, dry SpO2 Interpretation: normal SpO2: 99 O2 Delivery: Room Air - Course Nursing assessment & vital signs reviewed: Yes - Radiology Exams Ankle X-ray Interpretation: Interpreted by me (R ankle neg per ER read) Foot X-ray Interpretation: Interpreted by me (R foot neg per ER read) Ordered Tests: Active Orders 24 hr Category Date Time Status Splint STAT Care 07/11/23 21:50 Active ANKLE (3 VIEWS) Stat Exams 07/11/23 21:36 Taken FOOT (MINIMUM 3 VIEWS) Stat Exams 07/11/23 21:37 Taken Medication Summary Discontinued Medications Generic Name Dose Route Start Last Admin Trade Name Freq PRN Reason Stop Dose Admin Ketorolac Tromethamine 30 mg 07/11/23 21:37 07/11/23 21:43 Ketorolac Tromethamine 30 Mg/Ml Inj IM 07/11/23 21:38 30 mg STAT ONE Administration Ketorolac Tromethamine Confirm 07/11/23 21:42 Ketorolac Tromethamine 30 Mg/Ml Inj Administered 07/11/23 21:43 Dose 30 mg .ROUTE .STK-MED ONE - Progress Progress: improved Progress Note: 07/11/23 22:11 Nursing note and vital signs reviewed No food or housing insecurities noted Additional history per mother XR R foot/ankle read per ER physician and result shared w pt/mother 30mg IM Toradol Walking boot RLE per nursing/NVI Counseled pt/family regarding: diagnosis, need for follow-up, rad results Medical Desision Making - Independent Historian Additional History obtained from: Mother - Diagnostic Testing Radiological Interpretation: Interpreted by me - Departure Departure Disposition: Home Clinical Impression: Contusion of right foot, Right ankle sprain Condition: Stable Critical Care Time: No Referrals: ELEANOR JACKMAN MD [Primary Care Provider] - Follow up/PCP as directed Instructions: Ankle Sprain (DC), Foot Sprain (DC) Additional Instructions: Ice for 12-24 hours Toradol as needed for pain Weight bearing as tolerated Follow up in orthopedic clinic M-Fr 8-10AM for continued pain Prescriptions: Ketorolac Trometh 10 mg Tab [TORAdol 10 MG TABLET] 10 mg PO TID PRN PRN #10 tablet PRN Reason: Pain
[2023-07-11 21:51] VITALS: BP 130/72
[2023-07-11 22:10] VITALS: PULSE 80
[2023-07-11 22:15] VITALS: O2SAT 99
--- NOTE | 2023-07-12 09:25 | XRAY ---
Indication: Pain following fall. Comparison: None 3 nonweightbearing views right foot obtained. No bony, articular, or soft tissue abnormalities.
--- NOTE | 2023-07-12 09:25 | XRAY ---
Indication: Pain following fall. Comparison: None 3 view right ankle obtained. No bony, articular, or soft tissue abnormalities.
== END 2023-07-11 22:12 | disposition home or self-care (01) ==
LOC: ED 20:41
DX: S90.31XA Contusion of right foot, initial encounter (principal); S93.401A Sprain of unspecified ligament of right ankle, initial encounter; X50.0XXA Overexertion from strenuous movement or load, initial encounter; Z28.310 Unvaccinated for COVID-19
CPT/HCPCS: 73610; 73630; 96372; 99283; J1885; L4386

== ENCOUNTER 2024-10-20 11:41 | Emergency (ER) | payer BC, OTHER ==
[2024-10-20 12:01] VITALS: PULSE 70; RESP 18; TEMP 97
[2024-10-20] MEDS ORDERED: TORAdol 30 mg Injection ONE (12:30)
[2024-10-20] MEDS: TORAdol 30 mg Injection IM ONE (12:32)
--- NOTE | 2024-10-20 12:46 | XRAY ---
Indication: Pain following fall. Comparison: None 3 view right knee demonstrates minimal medial joint space narrowing and incidental posterior fabella. No other bony, articular, or soft tissue abnormalities.
[2024-10-20 13:19] VITALS: BP 108/62; O2SAT 97
--- NOTE | 2024-10-20 13:26 | ERPHSYRPT ---
- History of Present Illness Time Seen by Provider: 10/20/24 11:52 Source: patient Exam Limitations: no limitations Patient Subjective Stated Complaint: pt here for right knee pain, she states her knee gave out and caused her to fall, she states she hit her head on freezer, no loc Triage Nursing Assessment: pt alert, arrived per wc, resp easy, skin w/d/p. has swelling to right knee, right toes slightly blue in color. has strong pedal pulse able to moves toes well, has abrasion to left knee. Physician History: 24-year-old presented in the ER after she was holding a box at work, her right knee gave way leading to fall on the floor. Patient did hit her forehead/frontal scalp against the freezer with no loss of consciousness. Patient reports it felt as if her kneecap was dislocated and a coworker pushed it back in. Patient does not have any swelling of the knee but hurts to move. Difficulty weightbearing. No injury anywhere else. Denies any headache, visual changes, numbness tingling or focal weakness. Chest pain palpitations or shortness of breath before or after the fall. She has minimal scalp tenderness in the frontal area. Normal ENT exam. Lungs clear to auscultation. No swelling of knee but tenderness especially in the patella. No effusion/ballottement. Intact range of motion. Distal neurovascular intact. I have offered CT head which patient declined and I think it is reasonable. Ne uroexam is nonfocal. Recommended observation at home and outpatient follow-up. X-rays of right knee are negative for acute fracture dislocation. No effusion. I believe patient has knee sprain. Neto wrap applied, recommended weightbearing as tolerated, NSAIDs and outpatient orthopedics follow-up. Discussed signs symptoms of worsening needing return to ER which patient seems understanding. Stable for discharge. Allergies/Adverse Reactions: No Known Drug Allergies Allergy (Verified 07/11/23 21:16) Hx Tetanus, Diphtheria Vaccination/Date Given: No Hx Influenza Vaccination/Date Given: No Hx Pneumococcal Vaccination/Date Given: No Immunizations Up to Date: Yes Travel Risk - International Travel Have you traveled outside of the country in past 3 weeks: No - Emerging Infectious Disease Are you exhibiting symptoms associated with any current EIDs: No - Review of Systems Constitutional: No Symptoms Eyes: No Symptoms Ears, Nose, & Throat: No Symptoms Respiratory: No Symptoms Cardiac: No Symptoms Abdominal/Gastrointestinal: No Symptoms Musculoskeletal: Fall, Injury, Joint Pain Skin: No Symptoms Neurological: No Symptoms Hematologic/Lymphatic: No Symptoms - Past Medical History Pertinent Past Medical History: Yes Neurological History: No Pertinent History ENT History: No Pertinent History Cardiac History: No Pertinent History Respiratory History: No Pertinent History Endocrine Medical History: No Pertinent History Musculoskeletal History: No Pertinent History GI Medical History: No Pertinent History History: No Pertinent History Psycho-Social History: Depression Female Reproductive Disorders: Menstrual Problems Other Medical History: DX Anemia - Past Surgical History Past Surgical History: No Neuro Surgical History: No Pertinent History Cardiac: No Pertinent History Respiratory: No Pertinent History Gastrointestinal: No Pertinent History Genitourinary: No Pertinent History Musculoskeletal: No Pertinent History Female Surgical History: No Pertinent History Significant Family History: no pertinent family hx - Female History Hx Last Menstrual Period: sep 20 Hx Now: No - Social History Smoking Status: Former smoker How long have you smoked: 3yrs Exposure to second hand smoke: No Drug Use: none Patient Lives Alone: No - Social Determinants of Health Will the patient participate in the screening: Declined to provide - Nursing Vital Signs Nursing Vital Signs: Initial Vital Signs Temperature 97.0 F 10/20/24 12:00 Pulse Rate 70 10/20/24 12:00 Respiratory Rate 18 10/20/24 12:00 Blood Pressure 120/72 10/20/24 12:00 O2 Sat by Pulse Oximetry 96 10/20/24 12:00 Pain Scale Pain Intensity 4 - Physical Exam General Appearance: no apparent distress, alert Eyes, Ears, Nose, Throat Exam: normal ENT inspection Neck Exam: normal inspection, full range of motion Cardiovascular/Respiratory Exam: normal breath sounds, regular rate/rhythm Back Exam: normal inspection, normal range of motion Legs Exam: bilateral leg: non-tender, normal inspection, normal range of motion, no evidence of injury Knees Exam: right knee: bone tenderness, pain, soft tissue tenderness, left knee: non-tender, normal inspection, normal range of motion, no evidence of in jury Ankle Exam: bilateral ankle: non-tender, normal inspection, normal range of motion, no evidence of injury Neuro/Tendon Exam: normal sensation, normal motor functions Mental Status Exam: alert, oriented x 3, cooperative Skin Exam: normal color SpO2 Interpretation: normal SpO2: 97 O2 Delivery: Room Air Ordered Tests: Active Orders 24 hr Category Date Time Status KNEE (3 VIEWS) Stat Exams 10/20/24 11:56 Completed Medication Summary Discontinued Medications Generic Name Dose Route Start Last Admin Trade Name Tawanna PRN Reason Stop Dose Admin Ketorolac Tromethamine 30 mg 10/20/24 12:27 10/20/24 12:32 Ketorolac Tromethamine 30 Mg/Ml Inj IM 10/20/24 12:28 30 mg STAT ONE Administration Ketorolac Tromethamine Confirm 10/20/24 12:30 Ketorolac Tromethamine 30 Mg/Ml Inj Administered 10/20/24 12:31 Dose 30 mg .ROUTE .[employer] ONE - Progress Progress Note: 10/20/24 13:22 24-year-old presented in the ER after she was holding a box at work, her right knee gave way leading to fall on the floor. Patient did hit her forehead/frontal scalp against the freezer with no loss of consciousness. Patient reports it felt as if her kneecap was dislocated and a coworker pushed it back in. Patient does not have any swelling of the knee but hurts to move. Difficulty weightbearing. No injury anywhere else. Denies any headache, visual changes, numbness tingling or focal weakness. Chest pain palpitations or shortness of breath before or after the fall. She has minimal scalp tenderness in the frontal area. Normal ENT exam. Lungs clear to auscultation. No swelling of knee but tenderness especially in the patella. No effusion/ballottement. Intact range of motion. Distal neurovascular intact. I have offered CT head which patient declined and I think it is reasonable. Neuroexam is nonfocal. Recommended observation at home and outpatient follow-u p. X-rays of right knee are negative for acute fracture dislocation. No effusion. Given Toradol for symptomatic relief and feeling better on reevaluation. I believe patient has knee sprain. Neto wrap applied, recommended weightbearing as tolerated, NSAIDs and outpatient orthopedics follow-up. Discussed signs symptoms of worsening needing return to ER which patient seems understanding. Stable for discharge. Counseled pt/family regarding: diagnosis, need for follow-up, rad results Medical Desision Making - Diagnostic Testing Diagnostic test were ordered, analyzed, and reviewed by me: Yes Radiological Interpretation: Reviewed by me - Risk of complications The pt has a mod risk of morbidity or mortality based on: Need for prescription drug management - Departure Departure Disposition: Home Clinical Impression: Knee sprain, Fall, Scalp contusion Condition: Stable Critical Care Time: No Referrals: ELEANOR JACKMAN MD [Primary Care Provider] - Follow up with PCP 1 day GALEN MANNING DO [ACTIVE STAFF] - Follow up/PCP as directed (call in 1-2 days for re-evaluation ) Instructions: Knee Sprain (DC), Minor Head Injury, Adult ED Additional Instructions: Intermittent ice application. Tylenol/ibuprofen as needed for pain. Follow-up with primary care and orthopedics for reevaluation. Weightbearing as tolerated. Avoid exertional activities. Return to ER for any worsening. Prescriptions: Ibuprofen 600 mg PO Q6HPRN PRN 10 Days #20 tablet PRN Reason: Pain
== END 2024-10-20 13:42 | disposition home or self-care (01) ==
LOC: ED 11:41
DX: S83.91XA Sprain of unspecified site of right knee, initial encounter (principal); S00.03XA Contusion of scalp, initial encounter; W18.39XA Other fall on same level, initial encounter; Y99.0 Civilian activity done for income or pay
CPT/HCPCS: 73562; 96372; 99283; J1885